=== PATIENT | male | born 1985 | race Asian ===

== ENCOUNTER 2017-01-13 10:15 | Emergency (ER) | payer BC ==
[2017-01-13 10:25] VITALS: BP 112/70
--- NOTE | 2017-01-13 10:50 | EDM.PDOC ---
ED HPI GENERAL MEDICAL PROBLEM - General Chief Complaint: ENT Problem Stated Complaint: PAIN THROAT/RT EAR Time Seen by Provider: 01/13/17 10:30 Source of Information: Reports: Patient History Limitations: Reports: No Limitations - History of Present Illness INITIAL COMMENTS - FREE TEXT/NARRATIVE: HISTORY AND PHYSICAL: History of present illness: [Patient comes to the emergency room complaining of right-sided sore throat for the past 1-1/2 days. States that it is the worst sore throat is ever had and is having difficulty swallowing due to the pain. he's been taking Advil every 4-6 hours for the pain which provides temporary relief. Pain starts in his throat and radiates up into his right ear. No symptoms on his left side. He states that he woke up children shaking during the night but did not check his temperature. This was relieved with Advil. Appetite has been good but he's been eating a lot of soup because of his throat pain. No abdominal pain, nausea or vomiting. States that he is otherwise well and has no other complaints or concerns.] Review of systems: As per history of present illness and below otherwise all systems reviewed and negative. Past medical history: As per history of present illness and as reviewed below otherwise noncontributory. Surgical history: As per history of present illness and as reviewed below otherwise noncontributory. Social history: No reported history of drug or alcohol abuse. Family history: As per history of present illness and as reviewed below otherwise noncontributory. Physical exam: HEENT: Atraumatic, normocephalic. TMs are pearly hess and without erythema bilaterally. Face is nontender with palpation. Eyes are clear. Oral mucous membranes are pink and moist. Right posterior oropharynx is erythematous no swelling or exudate is appreciated. PND noted in posterior oropharynx. Neck is supple. Mild anterior cervical lymphadenopathy on the right side. None on the left. Lungs: Clear to auscultation, breath sounds equal bilaterally. Heart: S1S2, regular rate and rhythm. Abdomen: Soft, nondistended, nontender. No guarding masses or rebound. Extremities: Atraumatic, and ambulatory without deficit. Neurovascular unremarkable. Neuro: Awake, alert, oriented. Motor and sensory unremarkable throughout. Exam nonfocal. Diagnostics: [Strep swab] Impression: [sore throat] Plan: [Discussed with patient that strep swab is negative. Recommend starting in antihistamine to reduce drainage that is likely contributing to his sore throat. Establish care with a local PCP. Warm salt water gargles, throat lozenges, Tylenol or ibuprofen as needed for discomfort. Patient's in agreement with today's plan.] Definitive disposition and diagnosis as appropriate pending reevaluation and review of above. Throat Pain Score (Numeric/FACES): 9 - Related Data Allergies Allergy/AdvReac Type Severity Reaction Status Date / Time No Known Allergies Allergy Verified 01/13/17 10:23 Home Meds: Home Meds . [No Known Home Meds] 01/13/17 [History] Past Medical History - Past Surgical History Cardiovascular Surgical History: Reports: Cardiac Ablation Social & Family History - Family History Family Medical History: Noncontributory - Tobacco Use Smoking Status *Q: Never Smoker - Recreational Drug Use Recreational Drug Use: No ED ROS ENT - Review of Systems Review Of Systems: ROS reveals no pertinent complaints other than HPI. ED EXAM, ENT - Physical Exam Exam: See Below Course - Vital Signs Last Recorded V/S: Last Vital Signs Temp 98.9 F 01/13/17 10:23 Pulse 88 01/13/17 10:23 Resp 18 01/13/17 10:23 BP 112/70 01/13/17 10:23 Pulse Ox 95 01/13/17 10:23 - Orders/Labs/Meds Orders: Active Orders 24 hr Category Date Time Status CULTURE STREP A CONFIRMATION [RM] Stat Lab 01/13/17 10:40 Results STREP SCRN A RAPID W CULT CONF [RM] Stat Lab 01/13/17 10:40 Results Departure - Departure Time of Disposition: 11:15 Disposition: Home, Self-Care 01 Condition: Good Clinical Impression: Sore throat - Discharge Information Referrals: PCP,None [Primary Care Provider] - Forms: ED Department Discharge Additional Instructions: The following information is given to patients seen in the emergency department who are being discharged to home. This information is to outline your options for follow-up care. We provide all patients seen in our emergency department with a follow-up referral. The need for follow-up, as well as the timing and circumstances, are variable depending upon the specifics of your emergency department visit. If you don't have a primary care physician on staff, we will provide you with a referral. We always advise you to contact your personal physician following an emergency department visit to inform them of the circumstance of the visit and for follow-up with them and/or the need for any referrals to a consulting specialist. The emergency department will also refer you to a specialist when appropriate. This referral assures that you have the opportunity for follow-up care with a specialist. All of these measure are taken in an effort to provide you with optimal care, which includes your follow-up. Under all circumstances we always encourage you to contact your private physician who remains a resource for coordinating your care. When calling for follow-up care, please make the office aware that this follow-up is from your recent emergency room visit. If for any reason you are refused follow-up, please contact the [facility] emergency department at and asked to speak to the emergency department charge nurse. [address] [address] Follow-up with your primary care provider at the clinic listed above in 48-72 hours. Take Zyrtec 10mg OR Claritin 10mg daily. Use throat lozenges, warm salt water gargles, Tylenol or ibuprofen as needed for discomfort. Return to ER as needed as discussed. - My Orders Last 24 Hours: My Active Orders 01/13/17 10:40 CULTURE STREP A CONFIRMATION [RM] Stat STREP SCRN A RAPID W CULT CONF [RM] Stat - Assessment/Plan Last 24 Hours: My Active Orders 01/13/17 10:40 CULTURE STREP A CONFIRMATION [RM] Stat STREP SCRN A RAPID W CULT CONF [RM] Stat
== END 2017-01-13 11:35 | disposition home or self-care (01) ==
LOC: MW.ED 10:15
DX: J02.9 Acute pharyngitis, unspecified (principal)
CPT/HCPCS: 87081; 87880; 99282; 99283